=== PATIENT | female | born 1990 | race Caucasian/White ===

== ENCOUNTER 2016-09-05 19:57 | Emergency (ER) | payer MEDICAID ==
[~2016-09-05] VITALS: Ht 175.3 cm; Wt 62.3 kg
[~2016-09-05 19:57] MED LIST: B-12 100 MCG PO; BACTRIM DS 8001 TAB PO; CEFTIN 250250 MG/TAB PO; CEPHALEXIN500 M1 PO; ESSURE; FLAGYL500 MG PO; HAIRSKINNAILS PO; LORTAB 5/500 501 TAB PO; MACROBID100 MG PO; MVI PO; NAPROSYN500 MG PO; NO HOME MEDICATIONS; NORCO 325 MG-51 TAB PO; NORCO 325 MG-7.1 TAB PO; PHENERGAN 25 TA25 MG PO; PHENERGAN25 MG RC; PHENERGAN50 M1 PO; PREDNISONE10 MG PO; PYRIDIUM200 M1 PO; SEPTRA DS 8001 TAB PO; ZOFRAN ODT8 MG PO; permethrin TOP
[2016-09-05] MEDS ORDERED: LEXAPRO 10MG10 MG PO (20:02)
[2016-09-05] MEDS ORDERED: XANAX 0.5MG0.5 MG PO (20:02)
[2016-09-05 20:03] VITALS: TEMP 97.8
[2016-09-05 20:37] LABS: BASO # 0.1 (0.0-0.2); EOS # 0.5 (0.0-0.7); EOS % 4.8 % (0-4.0); GRAN # 5.6 (1.4-6.5); GRAN % 52.2 % (42.2-75.2); HEMATOCRIT 40.2 % (37.0-47.0); HEMOGLOBIN 12.9 g/dl (12.5-16.0); LYMPH # 3.8 (1.2-3.4); LYMPH % 34.9 % (20.0-51.0); MEAN CELL VOLUME 88 fl (80.0-100.0); MEAN CORPUSCULAR HEMOGLOBIN 28 pg (27.0-31.0); MEAN CORPUSCULAR HGB CONC 32 g/dl (33.0-37.0); MEAN PLATELET VOLUME 9.9 fl (7.4-10.4); MONO # 0.7 (0.1-0.6); MONO % 6.8 % (1.7-9.3); PLATELET COUNT 334 K/mm3 (130-400); RED BLOOD COUNT 4.59 M/mm3 (4.10-5.30); REDCELL DISTRIBUTION WIDTH-CV 15.2 % (11.5-14.5); WHITE BLOOD COUNT 10.8 K/mm3 (4.8-10.8)
[2016-09-05 20:37] LABS: PH 7 (5-8); SQUAMOUS EPITHELIAL 0-2 /hpf; URINE APPEARANCE Clear; URINE BACTERIA None Seen /hpf; URINE BILIRUBIN Negative (NEGATIVE); URINE BLOOD Negative (NEGATIVE); URINE COLOR Yellow; URINE GLUCOSE Negative (NEGATIVE); URINE KETONE Negative (NEGATIVE); URINE RBC 0-2 /hpf; URINE UROBILINOGEN Negative (NEGATIVE); URINE WBC 0-2 /hpf
[2016-09-05 20:54] LABS: ADJUSTED CALCIUM 8.8 mg/dL (8.4-10.2); ALANINE AMINOTRANSFERASE 102 U/L (9-52); ALBUMIN 4.5 gm/dL (3.5-5.0); ALKALINE PHOSPHATASE 84 U/L (50-136); ANION GAP 11 mmol/L (7-16); BILIRUBIN,TOTAL 1.2 mg/dL (0.0-1.0); BLOOD UREA NITROGEN 10 mg/dL (7-17); CALCIUM 9.2 mg/dL (8.4-10.2); CARBON DIOXIDE 24 mmol/L (22-30); CHLORIDE 101 mmol/L (98-107); GLUCOSE 86 mg/dL (74-106); LIPASE 201 U/L (23-300); SODIUM 136 mmol/L (137-145); TOTAL PROTEIN 7.5 gm/dL (6.4-8.2)
[2016-09-05 20:58] LABS: C-REACTIVE PROTEIN < 0.5 mg/dL (0.0-0.9)
[2016-09-05] MEDS ORDERED: PERCOCET 325 MG1 TA2 PO (22:11)
[2016-09-05 22:29] VITALS: BP 112/72; PULSE 80
== END 2016-09-05 22:32 | disposition home or self-care (01) ==
LOC: COL.ER 19:57
PROVIDERS: Emergency Medicine
DX: R10.31 Right lower quadrant pain (principal); R10.32 Left lower quadrant pain; K59.00 Constipation, unspecified; Z87.442 Personal history of urinary calculi
CPT/HCPCS: J1170; J2405; J7030; Q9967

== ENCOUNTER 2016-12-24 21:19 | Emergency (ER) | payer MEDICAID ==
[~2016-12-24] VITALS: Ht 175.3 cm; Wt 63.6 kg
[~2016-12-24 21:19] MED LIST changes: +LEXAPRO 10MG10 MG PO; +PERCOCET 325 MG1 TA2 PO; +XANAX 0.5MG0.5 MG PO
[2016-12-24 21:22] VITALS: BP 135/79; TEMP 98.2
[2016-12-24 23:10] VITALS: PULSE 88
== END 2016-12-24 23:12 | disposition home or self-care (01) ==
LOC: COL.ER 21:19
DX: S61.411A Laceration without foreign body of right hand, initial encounter (principal); F32.9 Major depressive disorder, single episode, unspecified; F41.9 Anxiety disorder, unspecified; F17.210 Nicotine dependence, cigarettes, uncomplicated; W45.8XXA Other foreign body or object entering through skin, initial encounter; Y92.009 Unspecified place in unspecified non-institutional (private) residence as the place of occurrence of the external cause

== ENCOUNTER 2017-03-28 13:39 | Emergency (ER) | payer MEDICAID ==
[~2017-03-28] VITALS: Ht 175.3 cm; Wt 61.8 kg
[~2017-03-28 13:39] MED LIST changes: -LEXAPRO 10MG10 MG PO; +LEXAPRO20 MG PO; -XANAX 0.5MG0.5 MG PO; +XANAX 1MG1 MG PO
[2017-03-28 13:45] VITALS: TEMP 98.2
[2017-03-28] MEDS ORDERED: DESYREL 50MG50 MG PO (13:50)
[2017-03-28] MEDS ORDERED: LAMICTAL 25MG T25 MG PO (13:50)
[2017-03-28] MEDS ORDERED: FLEXERIL 1010 MG/TAB PO (14:57)
[2017-03-28 15:47] VITALS: BP 115/68; PULSE 98
== END 2017-03-28 15:48 | disposition home or self-care (01) ==
LOC: COL.ER 13:39
DX: S39.012A Strain of muscle, fascia and tendon of lower back, initial encounter (principal); F31.9 Bipolar disorder, unspecified; Z90.710 Acquired absence of both cervix and uterus; F17.210 Nicotine dependence, cigarettes, uncomplicated; X50.0XXA Overexertion from strenuous movement or load, initial encounter
CPT/HCPCS: J2270; J2550

== ENCOUNTER 2018-03-12 23:04 | Emergency (ER) | payer MEDICAID ==
[~2018-03-12] VITALS: Ht 175.3 cm; Wt 66.4 kg
[~2018-03-12 23:04] MED LIST changes: +DESYREL 50MG50 MG PO; +FLEXERIL 1010 MG/TAB PO; +LAMICTAL 25MG T25 MG PO
[2018-03-12 23:07] VITALS: BP 130/85; TEMP 97.8
[2018-03-12] MEDS ORDERED: FLEXERIL 1010 MG/TAB PO (23:41)
[2018-03-12] MEDS ORDERED: NORCO 325 MG-51 TAB PO (23:41)
[2018-03-12] MEDS ORDERED: LIDODERM 5% PATC1 EA TP (23:43)
[2018-03-13 00:08] VITALS: PULSE 74
[2018-03-13] MEDS ORDERED: FLEXERIL 1010 MG/TAB PO (00:09)
== END 2018-03-13 01:48 | disposition home or self-care (01) ==
LOC: COL.ER 23:04
DX: S76.011A Strain of muscle, fascia and tendon of right hip, initial encounter (principal); F17.210 Nicotine dependence, cigarettes, uncomplicated; J44.9 Chronic obstructive pulmonary disease, unspecified; Z90.710 Acquired absence of both cervix and uterus; W10.9XXA Fall (on) (from) unspecified stairs and steps, initial encounter; Y92.009 Unspecified place in unspecified non-institutional (private) residence as the place of occurrence of the external cause

== ENCOUNTER 2018-04-08 12:06 | Emergency (ER) | payer MEDICAID ==
[~2018-04-08] VITALS: Ht 175.3 cm; Wt 74.5 kg
[~2018-04-08 12:06] MED LIST changes: +LIDODERM 5% PATC1 EA TP
[2018-04-08 12:08] VITALS: BP 146/83; PULSE 96; TEMP 99
[2018-04-08] MEDS ORDERED: NORCO 325 MG-51 TAB PO (12:43)
== END 2018-04-08 12:53 | disposition home or self-care (01) ==
LOC: COL.ER 12:06
DX: S50.01XA Contusion of right elbow, initial encounter (principal); W10.9XXA Fall (on) (from) unspecified stairs and steps, initial encounter; Z87.891 Personal history of nicotine dependence

== ENCOUNTER 2018-04-27 12:59 | Emergency (ER) | payer MEDICAID ==
[~2018-04-27] VITALS: Ht 175.3 cm; Wt 66.4 kg
[2018-04-27 13:08] VITALS: BP 127/58; TEMP 98.5
[2018-04-27] MEDS ORDERED: PROAIR HFA0.09 MG/AC IH (13:41)
[2018-04-27] MEDS ORDERED: FLOVENT 44MCG I13 GM IH (13:42)
[2018-04-27] MEDS ORDERED: CEPHALEXIN500 M1 PO (14:03)
[2018-04-27 14:11] VITALS: PULSE 100
== END 2018-04-27 14:10 | disposition home or self-care (01) ==
LOC: COL.ER 12:59
DX: R10.30 Lower abdominal pain, unspecified (principal); J45.909 Unspecified asthma, uncomplicated; F41.9 Anxiety disorder, unspecified; F17.210 Nicotine dependence, cigarettes, uncomplicated; Z79.51 Long term (current) use of inhaled steroids

== ENCOUNTER 2018-04-29 16:44 | Emergency (ER) | payer MEDICAID ==
[~2018-04-29] VITALS: Ht 175.3 cm; Wt 66.4 kg
[~2018-04-29 16:44] MED LIST changes: +FLOVENT 44MCG I13 GM IH; +PROAIR HFA0.09 MG/AC IH
[2018-04-29 16:48] VITALS: BP 133/81; TEMP 97.8
[2018-04-29] MEDS ORDERED: NORCO 325 MG-51 TAB PO (18:17)
[2018-04-29] MEDS ORDERED: DOXYCYCLINE 10100 MG PO (18:17)
[2018-04-29 18:36] VITALS: PULSE 80
== END 2018-04-29 18:36 | disposition home or self-care (01) ==
LOC: COL.ER 16:44
DX: L02.91 Cutaneous abscess, unspecified (principal); F17.210 Nicotine dependence, cigarettes, uncomplicated; Z98.890 Other specified postprocedural states; Z90.49 Acquired absence of other specified parts of digestive tract; F41.9 Anxiety disorder, unspecified; Z79.51 Long term (current) use of inhaled steroids

== ENCOUNTER 2018-05-31 20:56 | Emergency (ER) | payer MEDICAID | END 2018-05-31 22:30 | disposition home or self-care (01) | LOC: COL.ER 20:56 | DX: S39.012A Strain of muscle, fascia and tendon of lower back, initial encounter (principal); S70.01XA Contusion of right hip, initial encounter; J44.9 Chronic obstructive pulmonary disease, unspecified; F17.210 Nicotine dependence, cigarettes, uncomplicated; W18.30XA Fall on same level, unspecified, initial encounter; Y93.23 Activity, snow (alpine) (downhill) skiing, snowboarding, sledding, tobogganing and snow tubing; Y92.009 Unspecified place in unspecified non-institutional (private) residence as the place of occurrence of the external cause ==

== ENCOUNTER 2018-07-14 12:52 | Emergency (ER) | payer MEDICAID ==
[~2018-07-14] VITALS: Ht 175.3 cm; Wt 70.0 kg
[~2018-07-14 12:52] MED LIST changes: +DOXYCYCLINE 10100 MG PO
[2018-07-14 12:58] VITALS: TEMP 98.4
[2018-07-14 13:16] LABS: COLLECTION METHOD CLEAN CATCH
[2018-07-14 13:22] LABS: BASO # 0.1 (0.0-0.2); BASO % 1.6 % (0.0-2.0); EOS # 0.4 (0.0-0.7); EOS % 5.4 % (0-4.0); GRAN % 62.4 % (42.2-75.2); HEMOGLOBIN 14.2 g/dl (12.5-16.0); LYMPH % 24.4 % (20.0-51.0); MEAN CELL VOLUME 91 fl (80.0-100.0); MEAN CORPUSCULAR HEMOGLOBIN 30 pg (27.0-31.0); MEAN CORPUSCULAR HGB CONC 33 g/dl (33.0-37.0); MEAN PLATELET VOLUME 9.4 fl (7.4-10.4); MONO # 0.5 (0.1-0.6); PLATELET COUNT 346 K/mm3 (130-400); RED BLOOD COUNT 4.71 M/mm3 (4.10-5.30); REDCELL DISTRIBUTION WIDTH-CV 13.1 % (11.5-14.5)
[2018-07-14 13:26] LABS: MUCOUS Present /lpf; PH 7 (5-8); URINE APPEARANCE Cloudy; URINE BACTERIA None Seen /hpf; URINE BILIRUBIN Negative (NEGATIVE); URINE BLOOD 1+ (NEGATIVE); URINE COLOR Yellow; URINE GLUCOSE Negative (NEGATIVE); URINE KETONE Negative (NEGATIVE); URINE LEUKOCYTE ESTERASE Negative (NEGATIVE); URINE NITRATE Negative (NEGATIVE); URINE PROTEIN(semi-quant) Negative (NEGATIVE); URINE UROBILINOGEN Negative (NEGATIVE)
[2018-07-14 13:33] LABS: ALANINE AMINOTRANSFERASE 14 U/L (9-52); ALBUMIN 4.3 gm/dL (3.5-5.0); ALKALINE PHOSPHATASE 86 U/L (50-136); ANION GAP 7 mmol/L (7-16); AST,SGOT 19 U/L (15-37); BILIRUBIN,TOTAL 0.7 mg/dL (0.0-1.0); BLOOD UREA NITROGEN 8 mg/dL (7-17); CALCIUM 9.4 mg/dL (8.4-10.2); CARBON DIOXIDE 26 mmol/L (22-30); CHLORIDE 107 mmol/L (98-107); CREATININE, serum 0.64 (0.52-1.25); GLUCOSE 107 mg/dL (74-106); POTASSIUM 4.3 mmol/L (3.4-5.0); SODIUM 140 mmol/L (137-145); TOTAL PROTEIN 7.3 gm/dL (6.4-8.2)
[2018-07-14 13:34] LABS: C-REACTIVE PROTEIN < 0.5 mg/dL (0.0-0.9)
[2018-07-14 16:57] VITALS: BP 148/97; PULSE 73
== END 2018-07-14 16:59 | disposition home or self-care (01) ==
LOC: COL.ER 12:52
PROVIDERS: Nurse Practitioner
DX: R10.31 Right lower quadrant pain (principal); G89.29 Other chronic pain; J44.9 Chronic obstructive pulmonary disease, unspecified; F41.9 Anxiety disorder, unspecified; F17.210 Nicotine dependence, cigarettes, uncomplicated; Z90.710 Acquired absence of both cervix and uterus
CPT/HCPCS: J2270; J2405; J7030; Q9967

== ENCOUNTER → 2018-07-17 | Outpatient (CLI) | payer MEDICAID | LOC: COL.RAD 10:36 | DX: M54.5 Low back pain (principal); M25.551 Pain in right hip ==

== ENCOUNTER 2018-12-15 17:53 | Emergency (ER) | payer MEDICAID ==
[~2018-12-15] VITALS: Ht 175.3 cm; Wt 66.4 kg
[2018-12-15 17:57] VITALS: BP 127/81; TEMP 98.3
[2018-12-15] MEDS ORDERED: AMOXICILLIN 8751 TAB PO (18:14)
[2018-12-15] MEDS ORDERED: NORCO 325 MG-51 TAB PO (18:14)
[2018-12-15 18:30] VITALS: PULSE 81
== END 2018-12-15 18:30 | disposition home or self-care (01) ==
LOC: COL.ER 17:53
DX: K05.6 Periodontal disease, unspecified (principal); Z79.51 Long term (current) use of inhaled steroids

== ENCOUNTER 2018-12-31 16:21 | Emergency (ER) | payer MEDICAID ==
[~2018-12-31] VITALS: Ht 175.3 cm; Wt 66.4 kg
[~2018-12-31 16:21] MED LIST changes: +AMOXICILLIN 8751 TAB PO
[2018-12-31 16:41] VITALS: BP 114/75; TEMP 97.7
[2018-12-31] MEDS ORDERED: ESTRACE 1MG1 MG/TAB PO (16:59)
[2018-12-31] MEDS ORDERED: NORCO 325 MG-51 TAB PO (17:50)
[2018-12-31 18:13] VITALS: PULSE 73
== END 2018-12-31 18:13 | disposition home or self-care (01) ==
LOC: COL.ER 16:21
DX: S90.31XA Contusion of right foot, initial encounter (principal); J45.909 Unspecified asthma, uncomplicated; F17.210 Nicotine dependence, cigarettes, uncomplicated; Z79.51 Long term (current) use of inhaled steroids; W20.8XXA Other cause of strike by thrown, projected or falling object, initial encounter; Y92.009 Unspecified place in unspecified non-institutional (private) residence as the place of occurrence of the external cause

== ENCOUNTER 2019-02-15 14:48 | Emergency (ER) | payer MEDICAID ==
[~2019-02-15] VITALS: Ht 175.3 cm; Wt 66.4 kg
[~2019-02-15 14:48] MED LIST changes: +ESTRACE 1MG1 MG/TAB PO
[2019-02-15 14:53] VITALS: TEMP 97.1
[2019-02-15 15:29] LABS: COLLECTION METHOD CLEAN CATCH
[2019-02-15 15:32] LABS: BASO # 0.2 (0.0-0.2); BASO % 1.7 % (0.0-2.0); EOS # 0.6 (0.0-0.7); EOS % 6.3 % (0-4.0); GRAN # 5.4 (1.4-6.5); HEMATOCRIT 46.6 % (37.0-47.0); HEMOGLOBIN 15.7 g/dl (12.5-16.0); LYMPH # 2.1 (1.2-3.4); LYMPH % 24.1 % (20.0-51.0); MEAN CELL VOLUME 90 fl (80.0-100.0); MEAN CORPUSCULAR HEMOGLOBIN 30 pg (27.0-31.0); MEAN CORPUSCULAR HGB CONC 34 g/dl (33.0-37.0); MEAN PLATELET VOLUME 9.3 fl (7.4-10.4); MONO # 0.6 (0.1-0.6); MONO % 6.7 % (1.7-9.3); PLATELET COUNT 341 K/mm3 (130-400); RED BLOOD COUNT 5.19 M/mm3 (4.10-5.30); REDCELL DISTRIBUTION WIDTH-CV 13.2 % (11.5-14.5)
[2019-02-15 15:35] LABS: PH 8 (5-8); SQUAMOUS EPITHELIAL 0-2 /hpf; URINE APPEARANCE Clear; URINE BACTERIA Rare /hpf; URINE BILIRUBIN Negative (NEGATIVE); URINE BLOOD Negative (NEGATIVE); URINE COLOR Yellow; URINE GLUCOSE Negative (NEGATIVE); URINE KETONE Negative (NEGATIVE); URINE LEUKOCYTE ESTERASE Negative (NEGATIVE); URINE NITRATE Negative (NEGATIVE); URINE PROTEIN(semi-quant) Negative (NEGATIVE); URINE UROBILINOGEN Negative (NEGATIVE)
[2019-02-15 15:45] LABS: ALANINE AMINOTRANSFERASE 38 U/L (9-52); ALBUMIN 4.9 gm/dL (3.5-5.0); ALKALINE PHOSPHATASE 84 U/L (50-136); ANION GAP 10 mmol/L (7-16); AST,SGOT 32 U/L (15-37); BILIRUBIN,TOTAL 0.8 mg/dL (0.0-1.0); BLOOD UREA NITROGEN 12 mg/dL (7-17); CALCIUM 10.2 mg/dL (8.4-10.2); CARBON DIOXIDE 26 mmol/L (22-30); CHLORIDE 102 mmol/L (98-107); GLUCOSE 111 mg/dL (74-106); LIPASE 69 U/L (23-300); POTASSIUM 4.7 mmol/L (3.4-5.0); SODIUM 138 mmol/L (137-145); TOTAL PROTEIN 8.3 gm/dL (6.4-8.2)
[2019-02-15 15:52] LABS: C-REACTIVE PROTEIN < 0.5 mg/dL (0.0-0.9)
[2019-02-15] MEDS ORDERED: COMPAZINE 110 MG/TAB PO (17:15)
[2019-02-15] MEDS ORDERED: PHENERGAN 25 TA25 MG PO (17:15)
[2019-02-15 17:30] VITALS: BP 110/85; PULSE 81
== END 2019-02-15 17:30 | disposition home or self-care (01) ==
LOC: COL.ER 14:48
PROVIDERS: Emergency Medicine
DX: R10.31 Right lower quadrant pain (principal); Z90.710 Acquired absence of both cervix and uterus; Z87.891 Personal history of nicotine dependence; Z79.51 Long term (current) use of inhaled steroids
CPT/HCPCS: J0780; J1170; J7030; Q9967

== ENCOUNTER 2019-03-31 20:52 | Emergency (ER) | payer MEDICAID ==
[~2019-03-31] VITALS: Ht 175.3 cm; Wt 64.0 kg
[~2019-03-31 20:52] MED LIST changes: +COMPAZINE 110 MG/TAB PO
[2019-03-31 21:03] VITALS: BP 123/75; TEMP 98.5
[2019-03-31 22:56] VITALS: PULSE 67
== END 2019-03-31 22:56 | disposition home or self-care (01) ==
LOC: COL.ER 20:52
DX: S92.524A Nondisplaced fracture of middle phalanx of right lesser toe(s), initial encounter for closed fracture (principal); G43.909 Migraine, unspecified, not intractable, without status migrainosus; J44.9 Chronic obstructive pulmonary disease, unspecified; F17.210 Nicotine dependence, cigarettes, uncomplicated; Z87.442 Personal history of urinary calculi; W22.8XXA Striking against or struck by other objects, initial encounter; Y92.009 Unspecified place in unspecified non-institutional (private) residence as the place of occurrence of the external cause

== ENCOUNTER 2019-06-19 21:20 | Emergency (ER) | payer MEDICAID ==
[~2019-06-19] VITALS: Ht 175.3 cm; Wt 65.9 kg
[2019-06-19 21:24] VITALS: BP 124/73; TEMP 98.1
[2019-06-19 22:21] VITALS: PULSE 85
== END 2019-06-19 22:21 | disposition home or self-care (01) ==
LOC: COL.ER 21:20
DX: S90.111A Contusion of right great toe without damage to nail, initial encounter (principal); W20.8XXA Other cause of strike by thrown, projected or falling object, initial encounter

== ENCOUNTER 2019-08-24 20:25 | Emergency (ER) | payer MEDICAID ==
[~2019-08-24] VITALS: Ht 175.3 cm; Wt 67.3 kg
[2019-08-24 20:33] VITALS: TEMP 97.6
[2019-08-24 21:08] LABS: COLLECTION METHOD CLEAN CATCH
[2019-08-24 21:12] LABS: BASO # 0.1 (0.0-0.2); BASO % 1.4 % (0.0-2.0); EOS # 0.7 (0.0-0.7); EOS % 9.3 % (0-4.0); GRAN # 3.7 (1.4-6.5); GRAN % 50.2 % (42.2-75.2); HEMATOCRIT 40.2 % (37.0-47.0); HEMOGLOBIN 12.9 g/dl (12.5-16.0); LYMPH # 2.1 (1.2-3.4); LYMPH % 29.1 % (20.0-51.0); MEAN CELL VOLUME 94 fl (80.0-100.0); MEAN CORPUSCULAR HEMOGLOBIN 30 pg (27.0-31.0); MEAN CORPUSCULAR HGB CONC 32 g/dl (33.0-37.0); MEAN PLATELET VOLUME 9.5 fl (7.4-10.4); MONO # 0.7 (0.1-0.6); MONO % 9.9 % (1.7-9.3); PLATELET COUNT 362 K/mm3 (130-400); RED BLOOD COUNT 4.28 M/mm3 (4.10-5.30); REDCELL DISTRIBUTION WIDTH-CV 14.9 % (11.5-14.5)
[2019-08-24] MEDS ORDERED: LAMICTAL 100MG100 MG PO (21:14)
[2019-08-24 21:23] LABS: MUCOUS Present /lpf; PH 7 (5-8); SQUAMOUS EPITHELIAL 0-2 /hpf; URINE APPEARANCE Hazy; URINE BACTERIA None Seen /hpf; URINE BILIRUBIN Negative (NEGATIVE); URINE BLOOD Negative (NEGATIVE); URINE COLOR Amber; URINE GLUCOSE Negative (NEGATIVE); URINE KETONE Negative (NEGATIVE); URINE LEUKOCYTE ESTERASE Negative (NEGATIVE); URINE NITRATE Negative (NEGATIVE); URINE PROTEIN(semi-quant) Negative (NEGATIVE); URINE UROBILINOGEN >=4.0 mg/dL (NEGATIVE)
[2019-08-24 21:28] LABS: ALANINE AMINOTRANSFERASE 698 U/L (4-34); ALKALINE PHOSPHATASE 426 U/L (50-136); ANION GAP 6 mmol/L (7-16); AST,SGOT 385 U/L (15-37); BILIRUBIN,TOTAL 1.2 mg/dL (0.0-1.0); BLOOD UREA NITROGEN 5 mg/dL (7-17); C-REACTIVE PROTEIN < 0.5 mg/dL (0.0-0.9); CALCIUM 9.2 mg/dL (8.4-10.2); CARBON DIOXIDE 29 mmol/L (22-30); CHLORIDE 102 mmol/L (98-107); GLUCOSE 90 mg/dL (74-106); LIPASE 58 U/L (23-300); POTASSIUM 4.1 mmol/L (3.4-5.0); SODIUM 137 mmol/L (137-145); TOTAL PROTEIN 7.1 gm/dL (6.4-8.2)
[2019-08-25 00:56] LABS: INR 1.1 (0.8-3.0); PROTHROMBIN TIME 11.8 SECONDS (9.7-12.8)
[2019-08-25 01:20] LABS: IRON,SERUM 92 ug/dL (35-150)
[2019-08-25 01:30] LABS: TOTAL IRON BINDING CAPACITY 386 ug/dL (265-497)
[2019-08-25 01:46] VITALS: BP 118/88; PULSE 80
[2019-08-26 04:30] LABS: CERULOPLASMIN 40 mg/dL (20-60)
[2019-08-26 12:54] LABS: ALPHA 1 ANTITRYPSIN TOTAL 173.1 mg/dL (())
== END 2019-08-25 01:46 | disposition home or self-care (01) ==
LOC: COL.ER 20:25
PROVIDERS: Nurse Practitioner
DX: R10.10 Upper abdominal pain, unspecified (principal); R94.5 Abnormal results of liver function studies; J45.909 Unspecified asthma, uncomplicated; F17.210 Nicotine dependence, cigarettes, uncomplicated; Z79.51 Long term (current) use of inhaled steroids
CPT/HCPCS: J1170; J2405; J7030; Q9967

== ENCOUNTER → 2019-08-26 | Outpatient (CLI) | payer MEDICAID ==
[~2019-08-26] MED LIST changes: +LAMICTAL 100MG100 MG PO
[2019-08-26 10:18] LABS: BASO # 0.1 (0.0-0.2); BASO % 1.1 % (0.0-2.0); EOS # 0.4 (0.0-0.7); EOS % 5.1 % (0-4.0); GRAN # 4.9 (1.4-6.5); GRAN % 59.1 % (42.2-75.2); HEMATOCRIT 40.9 % (37.0-47.0); HEMOGLOBIN 13.5 g/dl (12.5-16.0); LYMPH % 24.3 % (20.0-51.0); MEAN CELL VOLUME 92 fl (80.0-100.0); MEAN CORPUSCULAR HEMOGLOBIN 31 pg (27.0-31.0); MEAN CORPUSCULAR HGB CONC 33 g/dl (33.0-37.0); MEAN PLATELET VOLUME 9.4 fl (7.4-10.4); MONO # 0.9 (0.1-0.6); MONO % 10.2 % (1.7-9.3); PLATELET COUNT 384 K/mm3 (130-400); RED BLOOD COUNT 4.43 M/mm3 (4.10-5.30); REDCELL DISTRIBUTION WIDTH-CV 14.8 % (11.5-14.5)
[2019-08-26 10:21] LABS: INR 1.1 (0.8-3.0)
[2019-08-26 10:30] LABS: ALBUMIN 4.1 gm/dL (3.5-5.0); BILIRUBIN,TOTAL 1.2 mg/dL (0.0-1.0); CALCIUM 9.8 mg/dL (8.4-10.2); CREATININE, serum 0.61 (0.52-1.25); POTASSIUM 4.4 mmol/L (3.4-5.0); TOTAL PROTEIN 7.4 gm/dL (6.4-8.2)
[2019-08-26 10:41] LABS: BILIRUBIN,DIRECT 0.5 mg/dL (0.0-0.4)
== END ==
LOC: COL.LAB 09:21
PROVIDERS: Internal Medicine Gastroenterology
DX: R74.0 Nonspecific elevation of levels of transaminase and lactic acid dehydrogenase [LDH] (principal)

== ENCOUNTER → 2019-08-26 | Outpatient (CLI) | payer MEDICAID | LOC: COL.RAD 09:18 | DX: K82.9 Disease of gallbladder, unspecified (principal); R79.89 Other specified abnormal findings of blood chemistry ==

== ENCOUNTER → 2019-09-02 | Outpatient (CLI) | payer MEDICAID ==
[2019-09-02 14:06] LABS: INR 1.1 (0.8-3.0); PROTHROMBIN TIME 11.9 SECONDS (9.7-12.8)
[2019-09-02 14:08] LABS: ALBUMIN 4.2 gm/dL (3.5-5.0); BILIRUBIN,TOTAL 1.4 mg/dL (0.0-1.0); CALCIUM 9.7 mg/dL (8.4-10.2); CREATININE, serum 0.6 (0.52-1.25); POTASSIUM 3.9 mmol/L (3.4-5.0); TOTAL PROTEIN 7.6 gm/dL (6.4-8.2)
[2019-09-02 14:27] LABS: BASO # 0.1 (0.0-0.2); BASO % 1.9 % (0.0-2.0); EOS # 0.7 (0.0-0.7); EOS % 8.9 % (0-4.0); GRAN # 3.4 (1.4-6.5); GRAN % 47.2 % (42.2-75.2); HEMATOCRIT 42.2 % (37.0-47.0); HEMOGLOBIN 13.5 g/dl (12.5-16.0); LYMPH # 2.4 (1.2-3.4); LYMPH % 32.5 % (20.0-51.0); MEAN CELL VOLUME 94 fl (80.0-100.0); MEAN CORPUSCULAR HEMOGLOBIN 30 pg (27.0-31.0); MEAN CORPUSCULAR HGB CONC 32 g/dl (33.0-37.0); MEAN PLATELET VOLUME 10.1 fl (7.4-10.4); MONO # 0.7 (0.1-0.6); MONO % 9.4 % (1.7-9.3); PLATELET COUNT 370 K/mm3 (130-400); RED BLOOD COUNT 4.48 M/mm3 (4.10-5.30); REDCELL DISTRIBUTION WIDTH-CV 14.9 % (11.5-14.5)
== END ==
LOC: COL.LAB 13:14
PROVIDERS: Internal Medicine Gastroenterology
DX: R10.11 Right upper quadrant pain (principal); R10.13 Epigastric pain; R74.0 Nonspecific elevation of levels of transaminase and lactic acid dehydrogenase [LDH]

== ENCOUNTER → 2019-09-08 | Outpatient (CLI) | payer MEDICAID ==
[2019-09-08 16:12] LABS: BASO # 0.1 (0.0-0.2); BASO % 1.7 % (0.0-2.0); EOS # 0.6 (0.0-0.7); EOS % 9.2 % (0-4.0); GRAN # 2.8 (1.4-6.5); GRAN % 39.8 % (42.2-75.2); HEMOGLOBIN 13.2 g/dl (12.5-16.0); LYMPH # 2.6 (1.2-3.4); LYMPH % 37.5 % (20.0-51.0); MEAN CELL VOLUME 93 fl (80.0-100.0); MEAN CORPUSCULAR HEMOGLOBIN 31 pg (27.0-31.0); MEAN CORPUSCULAR HGB CONC 33 g/dl (33.0-37.0); MEAN PLATELET VOLUME 9.7 fl (7.4-10.4); MONO # 0.8 (0.1-0.6); MONO % 11.7 % (1.7-9.3); PLATELET COUNT 326 K/mm3 (130-400); REDCELL DISTRIBUTION WIDTH-CV 14.8 % (11.5-14.5)
[2019-09-08 16:13] LABS: INR 1.1 (0.8-3.0); PROTHROMBIN TIME 12.4 SECONDS (9.7-12.8)
[2019-09-08 16:18] LABS: ALBUMIN 4.3 gm/dL (3.5-5.0); BILIRUBIN,TOTAL 1.3 mg/dL (0.0-1.0); CALCIUM 9.8 mg/dL (8.4-10.2); CREATININE, serum 0.7 (0.52-1.25); POTASSIUM 4.2 mmol/L (3.4-5.0); TOTAL PROTEIN 7.4 gm/dL (6.4-8.2)
== END ==
LOC: COL.LAB 15:46
PROVIDERS: Internal Medicine Gastroenterology
DX: R74.0 Nonspecific elevation of levels of transaminase and lactic acid dehydrogenase [LDH] (principal)

== ENCOUNTER 2019-12-06 13:17 | Emergency (ER) | payer MEDICAID ==
[~2019-12-06] VITALS: Ht 175.3 cm; Wt 66.4 kg
[2019-12-06 13:31] VITALS: BP 143/92; TEMP 98.6
[2019-12-06] MEDS ORDERED: PERCOCET 325 MG1 TA2 PO (15:09)
[2019-12-06] MEDS ORDERED: FLEXERIL 1010 MG/TAB PO (15:09)
[2019-12-06 15:19] VITALS: PULSE 97
== END 2019-12-06 15:15 | disposition home or self-care (01) ==
LOC: COL.ER 13:17
DX: S23.9XXA Sprain of unspecified parts of thorax, initial encounter (principal); V48.6XXA Car passenger injured in noncollision transport accident in traffic accident, initial encounter; F17.210 Nicotine dependence, cigarettes, uncomplicated

== ENCOUNTER → 2019-12-06 | Outpatient (CLI) | payer MEDICAID ==
[2019-12-06 15:14] LABS: INR 1.1 (0.8-3.0); PROTHROMBIN TIME 12.5 SECONDS (9.7-12.8)
[2019-12-06 15:16] LABS: ALBUMIN 4.7 gm/dL (3.5-5.0); TOTAL PROTEIN 7.9 gm/dL (6.4-8.2)
[2019-12-06 15:28] LABS: BILIRUBIN UNCONJUGATED 0.6 mg/dL (0.0-1.1); BILIRUBIN,DIRECT 0.3 mg/dL (0.0-0.4); BILIRUBIN,TOTAL 0.9 mg/dL (0.0-1.0)
== END ==
LOC: COL.LAB 14:42
PROVIDERS: Family Medicine
DX: B19.20 Unspecified viral hepatitis C without hepatic coma (principal)
CPT/HCPCS: 87522

== ENCOUNTER 2020-06-26 21:04 | Emergency (ER) | payer MEDICAID ==
[~2020-06-26] VITALS: Ht 175.3 cm; Wt 63.6 kg
[2020-06-26 21:05] VITALS: TEMP 97.4
[2020-06-26 21:51] LABS: BASO # 0.1 (0.0-0.2); BASO % 1.3 % (0.0-2.0); EOS # 0.3 (0.0-0.7); EOS % 3.5 % (0-4.0); GRAN # 3.5 (1.4-6.5); GRAN % 49.1 % (42.2-75.2); HEMATOCRIT 39.5 % (37.0-47.0); LYMPH # 2.5 (1.2-3.4); LYMPH % 35.9 % (20.0-51.0); MEAN CELL VOLUME 90 fl (80.0-100.0); MEAN CORPUSCULAR HEMOGLOBIN 30 pg (27.0-31.0); MEAN CORPUSCULAR HGB CONC 33 g/dl (33.0-37.0); MEAN PLATELET VOLUME 9.2 fl (7.4-10.4); MONO # 0.7 (0.1-0.6); MONO % 10.1 % (1.7-9.3); PLATELET COUNT 335 K/mm3 (130-400); RED BLOOD COUNT 4.41 M/mm3 (4.10-5.30); REDCELL DISTRIBUTION WIDTH-CV 13.2 % (11.5-14.5)
[2020-06-26 22:08] LABS: ALANINE AMINOTRANSFERASE 405 U/L (4-34); ALBUMIN 4.1 gm/dL (3.5-5.0); ALKALINE PHOSPHATASE 136 U/L (50-136); ANION GAP 9 mmol/L (7-16); AST,SGOT 196 U/L (15-37); BILIRUBIN,TOTAL 0.7 mg/dL (0.0-1.0); BLOOD UREA NITROGEN 11 mg/dL (7-17); CALCIUM 9.6 mg/dL (8.4-10.2); CARBON DIOXIDE 30 mmol/L (22-30); CHLORIDE 104 mmol/L (98-107); CREATININE, serum 0.75 (0.52-1.25); GLUCOSE 126 mg/dL (74-106); LIPASE 117 U/L (23-300); POTASSIUM 3.8 mmol/L (3.4-5.0); SODIUM 143 mmol/L (137-145); TOTAL PROTEIN 7.2 gm/dL (6.4-8.2)
[2020-06-26 22:09] LABS: C-REACTIVE PROTEIN < 0.5 mg/dL (0.0-0.9)
[2020-06-26 22:57] LABS: COLLECTION METHOD CLEAN CATCH
[2020-06-26 23:15] LABS: BUDDING YEAST Present /hpf; MUCOUS Present /lpf; PH 7 (5-8); SQUAMOUS EPITHELIAL 0-2 /hpf; URINE APPEARANCE Cloudy; URINE BACTERIA None Seen /hpf; URINE BILIRUBIN Negative (NEGATIVE); URINE BLOOD Negative (NEGATIVE); URINE COLOR Yellow; URINE GLUCOSE Negative (NEGATIVE); URINE KETONE Negative (NEGATIVE); URINE LEUKOCYTE ESTERASE Negative (NEGATIVE); URINE NITRATE Negative (NEGATIVE); URINE PROTEIN(semi-quant) Negative (NEGATIVE); URINE RBC 0-2 /hpf
[2020-06-26 23:33] VITALS: BP 107/70; PULSE 80
== END 2020-06-26 23:50 | disposition home or self-care (01) ==
LOC: COL.ER 21:04
PROVIDERS: Emergency Medicine
DX: R10.30 Lower abdominal pain, unspecified (principal); F17.210 Nicotine dependence, cigarettes, uncomplicated; Z87.442 Personal history of urinary calculi; Z88.8 Allergy status to other drugs, medicaments and biological substances; Z88.6 Allergy status to analgesic agent; Z87.42 Personal history of other diseases of the female genital tract
CPT/HCPCS: J2060; J2405; J3010; J7030; Q9967

== ENCOUNTER 2020-11-10 20:26 | Emergency (ER) | payer MEDICAID ==
[~2020-11-10] VITALS: Ht 175.3 cm; Wt 60.0 kg
[2020-11-10 20:28] VITALS: TEMP 98.3
[2020-11-10 20:49] LABS: BASO # 0.1 (0.0-0.2); BASO % 1.2 % (0.0-2.0); EOS # 0.2 (0.0-0.7); EOS % 3.6 % (0-4.0); GRAN # 2.3 (1.4-6.5); GRAN % 33.8 % (42.2-75.2); HEMATOCRIT 38.8 % (37.0-47.0); HEMOGLOBIN 12.9 g/dl (12.5-16.0); LYMPH # 3.7 (1.2-3.4); LYMPH % 54.1 % (20.0-51.0); MEAN CELL VOLUME 90 fl (80.0-100.0); MEAN CORPUSCULAR HEMOGLOBIN 30 pg (27.0-31.0); MEAN CORPUSCULAR HGB CONC 33 g/dl (33.0-37.0); MEAN PLATELET VOLUME 9.5 fl (7.4-10.4); MONO # 0.5 (0.1-0.6); PLATELET COUNT 323 K/mm3 (130-400); REDCELL DISTRIBUTION WIDTH-CV 13.2 % (11.5-14.5)
[2020-11-10 20:57] LABS: ALBUMIN 4.2 gm/dL (3.5-5.0); BILIRUBIN,TOTAL 0.9 mg/dL (0.0-1.0); CALCIUM 9.4 mg/dL (8.4-10.2); CREATININE, serum 0.68 (0.52-1.25); POTASSIUM 3.9 mmol/L (3.4-5.0)
[2020-11-10 23:28] VITALS: BP 130/89; PULSE 95
== END 2020-11-10 23:28 | disposition home or self-care (01) ==
LOC: COL.ER 20:26
PROVIDERS: Emergency Medicine
DX: S09.90XA Unspecified injury of head, initial encounter (principal); S01.01XA Laceration without foreign body of scalp, initial encounter; S01.81XA Laceration without foreign body of other part of head, initial encounter; V86.95XA Unspecified occupant of 3- or 4- wheeled all-terrain vehicle (ATV) injured in nontraffic accident, initial encounter
CPT/HCPCS: J0690; J2060; J2405; J3010; J7030

== ENCOUNTER → 2020-11-18 | Outpatient (CLI) | payer MEDICAID ==
[2020-11-18 15:16] VITALS: BP 127/83; PULSE 81; TEMP 98.2
== END ==
LOC: COL.ER 14:50
DX: Z48.02 Encounter for removal of sutures (principal)

== ENCOUNTER 2021-03-16 06:48 | Emergency (ER) | payer MEDICAID ==
[~2021-03-16] VITALS: Ht 175.3 cm; Wt 60.0 kg
[2021-03-16] MEDS ORDERED: NORCO 325 MG-51 TAB PO (11:07)
[2021-03-16 12:27] VITALS: BP 110/72; PULSE 71; TEMP 98.3
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
== END 2021-03-16 12:28 | disposition home or self-care (01) ==
LOC: COL.ER 06:48
DX: S32.019A Unspecified fracture of first lumbar vertebra, initial encounter for closed fracture (principal); S32.029A Unspecified fracture of second lumbar vertebra, initial encounter for closed fracture; G40.909 Epilepsy, unspecified, not intractable, without status epilepticus; J45.909 Unspecified asthma, uncomplicated; F17.200 Nicotine dependence, unspecified, uncomplicated; Z23 Encounter for immunization; Z79.899 Other long term (current) drug therapy; Z79.51 Long term (current) use of inhaled steroids; Y04.0XXA Assault by unarmed brawl or fight, initial encounter

== ENCOUNTER → 2021-06-15 | Outpatient (CLI) | payer MEDICAID | LOC: COL.PUL 08:00 | DX: Z02.71 Encounter for disability determination (principal); J44.9 Chronic obstructive pulmonary disease, unspecified ==

== ENCOUNTER 2021-06-20 19:00 | Emergency (ER) | payer MEDICAID ==
[~2021-06-20] VITALS: Ht 175.3 cm; Wt 57.7 kg
[2021-06-20 19:11] VITALS: TEMP 99.1
[2021-06-20 21:04] VITALS: BP 131/73; PULSE 101
== END 2021-06-20 21:03 | disposition home or self-care (01) ==
LOC: COL.ER 19:00
DX: R05.9 Cough, unspecified (principal)

== ENCOUNTER 2021-08-14 22:26 | Emergency (ER) | payer MEDICAID ==
[~2021-08-14] VITALS: Ht 175.3 cm; Wt 60.0 kg
[2021-08-14 22:31] VITALS: TEMP 98.4
[2021-08-14 23:09] VITALS: BP 142/88; PULSE 78
== END 2021-08-14 23:16 | disposition home or self-care (01) ==
LOC: COL.ER 22:26
DX: M25.531 Pain in right wrist (principal); Z91.040 Latex allergy status; Z28.310 Unvaccinated for COVID-19

== ENCOUNTER 2021-10-24 00:49 | Emergency (ER) | payer MEDICAID ==
[~2021-10-24] VITALS: Ht 175.3 cm; Wt 60.0 kg
[2021-10-24 00:56] VITALS: TEMP 97.4
[2021-10-24] MEDS ORDERED: ROXICODONE 55 MG/TAB PO (02:14)
[2021-10-24 02:24] VITALS: BP 138/93; PULSE 85
== END 2021-10-24 02:25 | disposition home or self-care (01) ==
LOC: COL.ER 00:49
DX: S86.812A Strain of other muscle(s) and tendon(s) at lower leg level, left leg, initial encounter (principal); F17.200 Nicotine dependence, unspecified, uncomplicated; Z91.040 Latex allergy status; Z88.5 Allergy status to narcotic agent; Z28.310 Unvaccinated for COVID-19; W18.39XA Other fall on same level, initial encounter
CPT/HCPCS: J2360; L4386

== ENCOUNTER 2021-12-04 11:53 | Emergency (ER) | payer MEDICAID ==
[~2021-12-04] VITALS: Ht 175.3 cm; Wt 60.0 kg
[~2021-12-04 11:53] MED LIST changes: +ROXICODONE 55 MG/TAB PO
[2021-12-04 12:05] VITALS: TEMP 98.2
[2021-12-04] MEDS ORDERED: NORCO 325 MG-51 TAB PO (13:51)
[2021-12-04] MEDS ORDERED: LIDODERM 5% PATC1 EA TP (13:51)
[2021-12-04 14:31] VITALS: BP 128/90; PULSE 86
== END 2021-12-04 14:33 | disposition home or self-care (01) ==
LOC: COL.ER 11:53
DX: R07.89 Other chest pain (principal); F17.200 Nicotine dependence, unspecified, uncomplicated; Z91.040 Latex allergy status; Z88.5 Allergy status to narcotic agent; Z28.310 Unvaccinated for COVID-19; W01.198A Fall on same level from slipping, tripping and stumbling with subsequent striking against other object, initial encounter

== ENCOUNTER 2023-04-13 15:32 | Emergency (ER) | payer MEDICAID ==
[~2023-04-13] VITALS: Ht 175.3 cm; Wt 61.8 kg
[~2023-04-13 15:32] MED LIST changes: +MEDROL 4MG DOSPA4 MG PO; +VOLTAREN GEL 1%1 TU TP
[2023-04-13 15:37] VITALS: TEMP 98.1
[2023-04-13 16:13] LABS: COLLECTION METHOD CLEAN CATCH
[2023-04-13 16:49] LABS: URINE APPEARANCE Hazy (CLEAR/HAZY); URINE COLOR Yellow (YELLOW)
[2023-04-13 16:50] LABS: MUCOUS Present (NOT PRESENT); PH 5.5 (5.0-8.5); URINE BACTERIA Moderate /hpf (NONE SEEN); URINE BLOOD Negative (NEGATIVE); URINE CALCIUM OXALATE CRYSTAL Present (NOT PRESENT); URINE GLUCOSE Negative (NEGATIVE); URINE KETONE TRACE (NEGATIVE); URINE NITRATE Negative (NEGATIVE); URINE PROTEIN(semi-quant) Negative (NEGATIVE); URINE RBC 0-2 /hpf (0-2); URINE UROBILINOGEN 0.2 E.U/dL (0.2-1.0)
[2023-04-13 18:47] VITALS: BP 124/81; PULSE 110
== END 2023-04-13 18:47 | disposition home or self-care (01) ==
LOC: COL.ER 15:32
PROVIDERS: Nurse Practitioner
DX: N89.8 Other specified noninflammatory disorders of vagina (principal); Z91.040 Latex allergy status

== ENCOUNTER 2023-06-23 04:20 | Emergency (ER) | payer MEDICAID ==
[~2023-06-23] VITALS: Ht 175.3 cm; Wt 61.4 kg
[2023-06-23 04:24] VITALS: TEMP 97.6
[2023-06-23 04:39] LABS: BASO # 0.1 K/mm3 (0.0-0.2); BASO % 1.3 % (0.0-2.0); EOS # 0.3 K/mm3 (0.0-0.7); EOS % 3.5 % (0.0-4.0); GRAN % 62.9 % (42.2-75.2); HEMATOCRIT 43.1 % (37.0-47.0); HEMOGLOBIN 13.6 g/dl (12.5-16.0); LYMPH # 1.9 K/mm3 (1.2-3.4); LYMPH % 23.3 % (20.0-51.0); MEAN CELL VOLUME 90 fl (80.0-100.0); MEAN CORPUSCULAR HEMOGLOBIN 29 pg (27-31); MEAN CORPUSCULAR HGB CONC 32 g/dl (33.0-37.0); MEAN PLATELET VOLUME 9.2 fl (7.4-10.4); MONO # 0.7 K/mm3 (0.1-0.6); MONO % 8.7 % (1.7-9.3); PLATELET COUNT 373 K/mm3 (130-400); RED BLOOD COUNT 4.77 M/mm3 (4.10-5.30); REDCELL DISTRIBUTION WIDTH-CV 15.1 % (11.5-14.5)
[2023-06-23] MEDS ORDERED: LORazepam 2 MG/ML 1 ML VIAL IV ONE (04:45)
[2023-06-23] MEDS ORDERED: NS 1,000 ML IV ONE (04:45)
[2023-06-23 04:50] LABS: ALANINE AMINOTRANSFERASE 272 U/L (0-55); ALBUMIN 3.6 gm/dL (3.5-5.0); ALKALINE PHOSPHATASE 137 U/L (40-150); ANION GAP 11 mmol/L (7-16); AST,SGOT 151 U/L (5-34); BILIRUBIN,TOTAL 0.6 mg/dL (0.2-1.2); BLOOD UREA NITROGEN 11 mg/dL (7-19); CALCIUM 9.7 mg/dL (8.4-10.2); CARBON DIOXIDE 23 mmol/L (22-29); CHLORIDE 108 mmol/L (98-107); CREATINE KINASE 61 U/L (29-168); CREATININE, serum 0.79 mg/dL (0.57-1.11); GLUCOSE 108 mg/dL (70-99); SODIUM 142 mmol/L (136-145); TOTAL PROTEIN 7.8 gm/dL (6.2-8.1)
[2023-06-23 04:58] LABS: TROPONIN-I < 0.010 ng/mL (0.00-0.033)
[2023-06-23] MEDS ORDERED: Home LORazepam 0.5 MG #3 TAB/PACK PO ONE (06:00)
[2023-06-23 06:02] VITALS: BP 143/105; PULSE 90
== END 2023-06-23 06:02 | disposition home or self-care (01) ==
LOC: COL.ER 04:20
PROVIDERS: Emergency Medicine
DX: R07.89 Other chest pain (principal); R06.02 Shortness of breath; R74.01 Elevation of levels of liver transaminase levels; F17.210 Nicotine dependence, cigarettes, uncomplicated; Z91.040 Latex allergy status
CPT/HCPCS: J2060; J7030

== ENCOUNTER 2024-01-08 01:34 | Emergency (ER) | payer MEDICAID ==
[~2024-01-08] VITALS: Ht 175.3 cm; Wt 60.1 kg
[2024-01-08 01:49] VITALS: BP 131/88; TEMP 98.1
[2024-01-08 02:49] VITALS: PULSE 93
== END 2024-01-08 02:50 | disposition home or self-care (01) ==
LOC: COL.ER 01:34
DX: S61.411A Laceration without foreign body of right hand, initial encounter (principal); F17.210 Nicotine dependence, cigarettes, uncomplicated; W25.XXXA Contact with sharp glass, initial encounter

== ENCOUNTER 2024-01-10 17:20 | Emergency (ER) | payer MEDICAID ==
[~2024-01-10] VITALS: Ht 175.3 cm; Wt 60.9 kg
[2024-01-10 17:41] VITALS: TEMP 98.7
[2024-01-10] MEDS ORDERED: Home HYDROcodone/Acetaminophen 5/325 MG #4 TABS/PACK PO ONE (19:00)
[2024-01-10 19:20] VITALS: BP 110/78; PULSE 88
== END 2024-01-10 19:20 | disposition home or self-care (01) ==
LOC: COL.ER 17:20
DX: S92.411A Displaced fracture of proximal phalanx of right great toe, initial encounter for closed fracture (principal); Z91.040 Latex allergy status; X58.XXXA Exposure to other specified factors, initial encounter